=== PATIENT | male | born 1990 | race Caucasian/White ===

== ENCOUNTER 2016-07-23 03:53 | Emergency (ER) | payer OTHER ==
[~2016-07-23] VITALS: Ht 175.3 cm; Wt 63.5 kg
--- NOTE | 2016-07-23 04:06 | ED GENERAL ADULT ---
History of Present Illness General Chief Complaint: General Adult Stated Complaint: "PER FRIEND LOCKED JAW" Source: patient Exam Limitations: no limitations Vital Signs & Intake/Output Vital Signs & Intake/Output Vital Signs Date Time Temp Pulse Resp B/P Pulse O2 O2 Flow FiO2 Ox Delivery Rate 07/23 0358 97.0 85 18 98 Room Air Allergies Coded Allergies: NO KNOWN ALLERGIES (02/11/11) Reconcile Medications No Known Home Medications Triage Note: TRIAGE: PATIENT TO ER FROM HOME W/ FRIEND REPORTING "LOCKED JAW X 15 MINUTES," HX OF SAME "A COUPLE TIMES, WAS TOLD IT WAS TMJ." DENIES ANY PAIN/ INJURY. Triage Nurses Notes Reviewed? yes Onset: Abrupt Duration: minute(s): Timing: single episode today Injury Environment: street Severity: moderate Modifying Factors: Worsens With: movement. Associated Symptoms: "I can't move my jaw." HPI: 26-year-old gentleman presents with pain in his jaw and inability to close his jaw. He states that he was in the car with his friend. He was talking. Suddenly, he was unable to close his jaw. He states this happens about once a year, but he is able to reduce his job by himself. Past History Travel History Traveled to [place] past 21 day No Medical History Any Pertinent Medical History? see below for history Neurological: NONE EENT: NONE Cardiovascular: NONE Respiratory: NONE Gastrointestinal: NONE Hepatic: NONE Renal: NONE Musculoskeletal: TMJ Psychiatric: NONE Endocrine: NONE Blood Disorders: NONE Cancer(s): NONE BOTTOM CAGER/Reproductive: NONE Surgical History Surgical History: none Psychosocial History What is your primary language Portuguese Tobacco Use: Refused to answer Family History Hx Contributory? No Review of Systems Review of Systems Constitutional: Reports: no symptoms. EENTM: Reports: no symptoms. Respiratory: Reports: no symptoms. Cardiovascular: Reports: no symptoms. GI: Reports: no symptoms. Genitourinary: Reports: no symptoms. Musculoskeletal: Reports: no symptoms. Skin: Reports: no symptoms. Neurological/Psychological: Reports: no symptoms. Hematologic/Endocrine: Reports: no symptoms. Immunologic/Allergic: Reports: no symptoms. All Other Systems: Reviewed and Negative Physical Exam Physical Exam General Appearance: well developed/nourished, mild distress Head: atraumatic, normal appearance Eyes: Bilateral: normal appearance. Ears, Nose, Throat: jaw is locked in an open position. Patient unable to close his jaw. Neck: normal inspection Respiratory: normal breath sounds, chest non-tender, no respiratory distress, quiet respiration Cardiovascular: regular rate/rhythm Gastrointestinal: normal bowel sounds Back: normal inspection Extremities: normal inspection Neurologic/Psych: no motor/sensory deficits, awake, alert, oriented x 3 Skin: intact, normal color Core Measures ACS in differential dx? No CVA/TIA Diagnosis: No Severe Sepsis Present: No Septic Shock Present: No Progress Differential Diagnoses I considered the following diagnoses in my evaluation of the patient: TMJ versus dislocated jaw versus other. Plan of Care: Jaw reduced without problem. Patient referred to ENT. Initial ED EKG: none Departure Departure Disposition: HOME OR SELF CARE Condition: Stable Clinical Impression Primary Impression: Dislocated jaw Referrals: CHELSIE ZUÑIGA,DIO Nicole (PCP/Family) Departure Forms: Customer Survey General Discharge Information Prescriptions: Current Visit Scripts No Known Home Medications Procedures Additional Procedures Additional Procedures: jaw reduction Progress: I placed both of my thumbs on the patient's lower molars. I applied downward and forward pressure. The jaw a reduced easily. Patient is able to speak without problem. Critical Care Note Critical Care Note Critical Care Time: non-applicable
== END 2016-07-23 04:18 ==
LOC: ERH 03:53
DX: S03.00XA Dislocation of jaw, unspecified side, initial encounter (principal); X58.XXXA Exposure to other specified factors, initial encounter